=== PATIENT | male | born 2000 | race Caucasian/White ===

== ENCOUNTER 2023-11-04 08:49 | Emergency (ER) | payer OTHER, SELFPAY ==
--- NOTE | ~2023-11-04 | CT_ITS ---
EXAMINATION: CT ABDOMEN AND PELVIS WITH CONTRAST CLINICAL INFORMATION: Right lower quadrant COMPARISON: None available. TECHNIQUE: Multidetector volumetric images were obtained from the superior aspect of the liver through the pubic symphysis following administration 85 mL of Omnipaque 350 intravenous contrast. Sagittal and coronal reformatted images were obtained on the technologist's workstation. Oral contrast: No This CT examination was performed using dose optimization techniques as appropriate, variously including the following: *Automated exposure control *Adjustment of mA and/or kV according to patient size (this includes techniques or standardized protocols for targeted exams where dose is matched to indication/reason for exam; i.e. extremities or head) *Use of iterative reconstruction technique DLP: 492 mGy-cm FINDINGS: LUNG BASES: The visualized lung bases are unremarkable. LIVER, GALLBLADDER, AND BILIARY TREE: The liver is enlarged measuring 18.5 cm greatest dimension. A tiny benign hepatic cyst is present in the right lobe of the liver just beneath the hemidiaphragm (3:12) without concerning focal hepatic lesion or biliary ductal dilatation is present. The gallbladder is unremarkable with no evidence of radiopaque gallstones, gallbladder wall thickening, or obvious pericholecystic inflammatory changes. PANCREAS: Unremarkable. SPLEEN: Unremarkable. ADRENAL GLANDS: Unremarkable. KIDNEYS AND URETERS: The kidneys are normal in size, shape, and attenuation. No hydronephrosis, hydroureter, or calculi seen. No perinephric stranding. BLADDER: Empty and poorly evaluated GASTROINTESTINAL TRACT: The small and large bowel are unremarkable. The appendix is unremarkable. ABDOMINAL WALL: No significant hernia is appreciated. LYMPH NODES: No retroperitoneal lymphadenopathy. VASCULAR: Unremarkable. PELVIC VISCERA: The prostate and seminal vesicles are unremarkable OSSEOUS STRUCTURES: Unremarkable. CT/CT abdomen pelvis w IV con IMPRESSION: 1. A cause for the patient's right lower quadrant pain has not been found. The appendix is normal. 2. Incidental note made of mild hepatomegaly and a tiny benign hepatic cyst. Fleischner guidelines were followed.
[2023-11-04 08:53] VITALS: BP 134/85; BP 138/88; PULSE 50; PULSE 56; RESP 16; TEMP 36.4; O2SAT 96; O2SAT 99; BMI 27.5
--- NOTE | 2023-11-04 08:55 | ED_ITS ---
HPI - General Adult General Chief complaint: Nausea/Vomiting/Diarrhea Stated complaint: RLQ PAIN,DIZZY,WEAK X4 DAYS PER EMS Source: patient Mode of arrival: ambulatory Limitations: no limitations History of Present Illness ED Provider: Paul YOUNG HPI narrative: This is a 23-year-old male who denies past medical history presenting from [employer] he reports he has been having abdominal pain since October 30. He reports it has in the middle and moves down to his right lower abdomen. He reports initially pain intermittent now constant in nature and very uncomfortable. This pain is associated with nausea as well as diarrhea. Patient denies sick contacts. Denies new foods. Denies fevers,chills, cp, sob, headache, cough, vision changes, dizziness, weakness Related Data Previous Rx's ?Medication ?Instructions ?Recorded ondansetron 4 mg disintegrating 4 mg PO Q6H PRN nausea and 11/04/23 tablet vomiting #14 tabs Allergies Allergy/AdvReac Type Severity Reaction Status Date / Time No Known Allergies Allergy Verified 11/04/23 08:57 Review of Systems 2 Review of Systems: Yes all other systems are reviewed and are negative [facility] Past Medical History Attestation statement: The following information was validated with the patient. Source: old records reviewed and nursing notes reviewed Social History Social History Advance Directives: No Advance Directives Information Provided: Yes Do you have a plan to hurt others: No Plan Physical Exam ED Vital Signs: Vital Signs - 24 hr 11/04/23 08:53 11/04/23 09:02 11/04/23 12:50 Temperature 97.6 F 97.6 F 98.1 F Pulse Rate 56 56 52 Respiratory Rate 16 16 14 Blood Pressure 134/85 134/85 120/75 Pulse Oximetry 96 96 99 Oxygen Delivery Method Room Air Room Air Room Air BMI result Body Mass Index 27.5 vss Appearance: Alert.? Oriented X3.? No acute distress.? Head: Normocephalic, atraumatic, no step-offs or deformities Eyes: Pupils equal, round and reactive to light.? CVS: Normal heart rate and rhythm.? Pulses normal.? Respiratory: No respiratory distress.? Breath sounds normal.? Abdomen: Soft and diffusely tender w/ rebound in the RLQ.? Skin: Skin warm and dry.? Normal skin color.? Normal skin turgor.? Extremities: No lower extremity edema.? No calf ttp. 5/5 strength to bilateral upper and lower extremities Neuro: Oriented X 3.? No motor deficit.? No sensory deficit. CN 2-12 intact Course Reevaluation(s) Reevaluation #1: CBC with leukocytosis 11.3, chemistry with no acute electrolyte abnormalities requiring intervention. T bili is noted to be elevated 1.5 unclear of patient's baseline. UA without infection. Imaging of abdomen pending. Time: 11:47 Reevaluation #2: CT abdomen and pelvis unable to identify a cause for patient's right lower quadrant pain. The appendix is normal. Incidental note of mild hepatomegaly entirely benign hepatic cyst. On re-evaluation pain much improved. Patient finally sleeping comfortably and states he is feeling better. At this time patient to be discharged home. Educated patient on diagnosis and treatment plan, answered all question, patient verbalizes understanding. At this time patient will be discharged home, advised to return with new or worsening symptoms. Educated on worrisome signs and symptoms and when to return. At this time I feel comfortable discharge home. Time: 12:55 Medications Administered Discontinued Medications Generic Name Dose Route Start Last Admin Trade Name Missy PRN Reason Stop Dose Admin Iohexol 100 ml 11/04/23 10:54 11/04/23 10:55 Iohexol 350 Mg/Ml 100 Ml Infus..Btl IV 11/04/23 10:55 85 ml ONCE ONE Administration Ketorolac Tromethamine 30 mg 11/04/23 08:56 11/04/23 09:53 Ketorolac Tromethamine 30 Mg/Ml Vial IVPUSH 11/04/23 08:57 30 mg ONCE ONE Administration Lorazepam 1 mg 11/04/23 09:25 11/04/23 09:30 Lorazepam 1 Mg Tablet PO 11/04/23 09:26 1 mg ONCE ONE Administration Ondansetron HCl 4 mg 11/04/23 08:56 11/04/23 09:53 Ondansetron Hcl 4 Mg/2 Ml Vial IVPUSH 11/04/23 08:57 4 mg ONCE ONE Administration Medical Decision Making Medical Decision Making MDM Narrative: 23 year old male presents w/ abdominal pain since October 30 epigastric/central initally now RLQ PE - diffuse tenderness w/ rebound worse to RLQ History and physical exam concerning for acute appendicitis versus viral illness versus gastroenteritis versus kidney stone. Will rule out UTI. Unlikely metabolic derangements. I do not suspect dissection, ACS. Plan- labs, imaging, urine Differential Diagnosis Differential Diagnoses: The differential diagnosis associated with the presentation includes History and physical exam concerning for acute appendicitis versus viral illness versus gastroenteritis versus kidney stone. Will rule out UTI. Unlikely metabolic derangements. I do not suspect dissection, ACS. Admission/Observation Consideration of admission/observation: Escalation of care including admission/observation considered possible Lab Data MDM Lab Attestation statement: I reviewed the patient's lab results. 11/04/23 09:51 11/04/23 09:51 Labs: Lab Results 11/04/23 11/04/23 Range/Units 09:22 09:51 WBC 11.3 H (4.8-10.8) X10*3/uL RBC 6.01 H (4.60-5.80) X10*6/uL Hgb 17.7 (14.0-18.0) g/dl Hct 50.6 (42.0-52.0) % MCV 84.2 (80.0-98.0) fL MCH 29.5 (27.0-33.0) pg MCHC 35.0 (31.0-36.0) g/dl RDW 12.7 (11.0-16.0) % Plt Count 377 (160-400) X10*3/uL MPV 9.8 (9.4-12.4) fL Immature Gran % (Auto) 0.3 (0.0-0.4) % Neut % (Auto) 74.9 H (45-73) % Lymph % (Auto) 17.6 L (20-40) % [place] % (Auto) 4.3 (2-11) % Eos % (Auto) 2.4 (0-4) % Baso % (Auto) 0.5 (0-2) % Lymph # (Auto) 2.0 (1.2-4.9) X10*3/uL [place] # (Auto) 0.5 (0.1-1.2) X10*3/uL Eos # (Auto) 0.3 (0.0-0.4) X10*3/uL Baso # (Auto) 0.1 (0.0-0.2) X10*3/uL Abs Immat Gran (auto) 0.03 (0.00-0.03) X10*3/uL Absolute Neuts (auto) 8.4 H (2.0-8.3) x10*3/uL Absolute Nucleated RBC 0.000 (0.0-0.012) X10*3/uL Nucleated RBC % (auto) 0.0 (0.0-0.2) /100WBC ESR 3 (0-15) MM/HR Hold Purple Top SEE NOTE Sodium 142 (135-145) mmol/L Potassium 4.1 (3.3-5.1) mmol/L Chloride 104 (96-108) mmol/L Carbon Dioxide 26 (22-29) mmol/L Anion Gap 16 (12-20) BUN 10 (9-16) mg/dL Creatinine 1.11 (0.5-1.4) mg/dL Estim Creat Clear Calc 99.5 Estimated GFR > 60 Random Glucose 127 H (60-115) mg/dL Calcium 11.5 H (8.4-10.2) mg/dL Magnesium 2.0 (1.6-2.6) mg/dL Total Bilirubin 1.5 H (0.0-1.0) mg/dL AST 24 (5-37) U/L ALT 18 (0-40) U/L Alkaline Phosphatase 65 (39-117) U/L C-Reactive Protein 0.16 (< or = 0.50) mg/dL Total Protein 9.6 H (6.5-8.0) g/dL Albumin 5.9 H (3.5-5.0) g/dL Lipase 17 (8-78) U/L Urine Color Yellow Urine Appearance Clear Urine pH 7.5 (5.0-9.0) Ur Specific [place] 1.025 (1.005-1.025) Urine Protein Trace (Neg-Trace) mg/dL Urine Glucose (UA) Negative (Negative) mg/dL Urine Ketones Trace (Negative) mg/dL Urine Blood Negative (Negative) Urine Nitrite Negative (Negative) Ur Leukocyte Esterase Negative (Negative) Independent Interpretation I performed an independent interpretation of an: Plain X-Ray and CT Scan (CT/CT abdomen pelvis w IV con IMPRESSION: 1. A cause for the patient's right lower quadrant pain has not been found. The appendix is normal. 2. Incidental note made of mild hepatomegaly and a tiny benign hepatic cyst. Fleischner guidelines were followed.) Radiology Impression Discussion of test interpretation with radiology: I have reviewed the radiologist's reading. Critical Care Time Critical Care Time Critical Care Time: Yes Total Critical Care Time: 35 Attestation: I attest to this time spent taking care of the patient, obtaining history, physical, reviewing labs, imaging, speaking to my attending, specialist or hospitalist. Discharge Plan Discharge Clinical Impression: Right sided abdominal pain, Nausea, Diarrhea Patient Disposition: Home, Self-Care Instructions: Acute Nausea and Vomiting (ED), Acute Diarrhea (ED), Abdominal Pain (ED) Additional Instructions: Take your medications as prescribed. If you were prescribed antibiotics today, it is important that you take your medication to their entirety, do not skip any doses, do not finish them early. Follow-up with your primary care provider this week. Return to the emergency department with new or worsening symptoms. Such as fevers, chills, chest pain, shortness of breath, nausea, vomiting, dizziness, headache, vision changes, lethargy In case of emergency call 911 This is likely a virus CT/CT abdomen pelvis w IV con IMPRESSION: 1. A cause for the patient's right lower quadrant pain has not been found. The appendix is normal. 2. Incidental note made of mild hepatomegaly and a tiny benign hepatic cyst. Fleischner guidelines were followed. Prescriptions: New ondansetron 4 mg tablet,disintegrating 4 mg PO Q6H PRN (Reason: nausea and vomiting) Qty: 14 0RF Referrals: Physician,Unknown J [Primary Care Provider] - 2 days Stand Alone Forms: Work/School Release Print Language: Cypriot
[2023-11-04 09:02] VITALS: BP 134/85; PULSE 56; RESP 16; TEMP 36.4; O2SAT 96
[2023-11-04 09:29] LABS: Appearance Urine Clear; Color Urine Yellow; Glucose Urine UA Negative (Negative); Leukocyte Esterase Urine Negative (Negative); Nitrite Urine Negative (Negative); PH 7.5 (5.0-9.0); Specific Gravity - Urine 1.025 (1.005-1.025); Urine Blood Negative (Negative); Urine Ketones Trace mg/dL (Negative); Urine Protein Trace mg/dL (Neg-Trace)
[2023-11-04] MEDS: LORazepam 1 MG TABLET PO (09:30)
[2023-11-04] MEDS: Ketorolac Tromethamine 30 MG/ML VIAL IVPUSH (09:53)
[2023-11-04] MEDS: ondansetron HCL 4 MG/2 ML VIAL IVPUSH (09:53)
[2023-11-04 10:00] LABS: MANUAL DIFF FLAG NO
[2023-11-04 10:05] LABS: Basophils Absolute Auto 0.1 X10*3/uL (0.0-0.2); Basophils Percent Auto 0.5 % (0-2); Eosinophils Absolute Auto 0.3 X10*3/uL (0.0-0.4); Eosinophils Percent Auto 2.4 % (0-4); Hematocrit 50.6 % (42.0-52.0); Hemoglobin 17.7 g/dl (14.0-18.0); Imm Gran Abs Auto 0.03 X10*3/uL (0.00-0.03); Imm Gran Pct Auto 0.3 % (0.0-0.4); Lymphocytes Percent Auto 17.6 % (20-40); Mean Corpuscular Hemoglobin 29.5 pg (27.0-33.0); Mean Corpuscular Volume 84.2 fL (80.0-98.0); Mean Platelet Volume 9.8 fL (9.4-12.4); Monocytes Absolute Auto 0.5 X10*3/uL (0.1-1.2); Monocytes Percent Auto 4.3 % (2-11); Neutrophils Absolute Auto 8.4 x10*3/uL (2.0-8.3); Neutrophils Percent Auto 74.9 % (45-73); Platelet Count 377 X10*3/uL (160-400); Red Blood Count 6.01 X10*6/uL (4.60-5.80); Red Cell Distribution Width 12.7 % (11.0-16.0); White Blood Count 11.3 X10*3/uL (4.8-10.8)
[2023-11-04 10:23] LABS: Alanine Aminotransferase 18 U/L (0-40); Albumin Level 5.9 g/dL (3.5-5.0); Alkaline Phosphatase 65 U/L (39-117); Anion Gap 16 (12-20); Aspartate Amino Transferase 24 U/L (5-37); Bilirubin Total 1.5 mg/dL (0.0-1.0); Blood Urea Nitrogen 10 mg/dL (9-16); C Reactive Protein 0.16 mg/dL (< or = 0.50); Calcium 11.5 mg/dL (8.4-10.2); Carbon Dioxide 26 mmol/L (22-29); Chloride 104 mmol/L (96-108); Creatinine Clr Calc Pharmacy 99.5; Estimated Glomerular Filt Rate > 60; Glucose Random 127 mg/dL (60-115); Lipase 17 U/L (8-78); Potassium 4.1 mmol/L (3.3-5.1); Sodium 142 mmol/L (135-145); Total Protein 9.6 g/dL (6.5-8.0)
[2023-11-04] MEDS: iohexoL 350 MG/ML 100 ML INFUS..BTL IV (10:55)
[2023-11-04 11:03] LABS: Erythrocyte Sedimentation Rate 3 MM/HR (0-15)
[2023-11-04 12:50] VITALS: BP 120/75; PULSE 52; RESP 14; TEMP 36.7; O2SAT 99
[2023-11-04 13:08] VITALS: BP 120/75; PULSE 52; RESP 14; TEMP 36.7; O2SAT 99
== END 2023-11-04 13:09 | disposition home or self-care (01) ==
PROVIDERS: Physician Assistant; Emergency Provider Emergency Medicine
DX: R10.31 Right lower quadrant pain (principal); R42 Dizziness and giddiness; R53.1 Weakness; R11.0 Nausea; R19.7 Diarrhea, unspecified; Z79.899 Other long term (current) drug therapy
CPT/HCPCS: 36415; 74177; 80053; 81003; 83690; 83735; 85025; 85652; 86140; 96374; 96375; 99284; J1885; J2405; Q9967

== ENCOUNTER 2025-02-04 11:57 | Emergency (ER) | payer OTHER, SELFPAY ==
--- NOTE | ~2025-02-04 | XR_ITS ---
EXAMINATION: XR CHEST CLINICAL INFORMATION: HTN COMPARISON: None available. TECHNIQUE: 2 views of the chest were obtained. FINDINGS: No significant abnormality is noted involving the heart, lungs, mediastinum, bony thorax or soft tissues. XR/XR chest 2V IMPRESSION: No acute disease Electronically signed by: Leonardo Muñiz MD 02/04/2025 01:12 PM EDT RP
--- NOTE | ~2025-02-04 | CT_ITS ---
EXAMINATION: CT HEAD WITHOUT IV CONTRAST HISTORY: severe headache different from typical migraine. TECHNIQUE: Unenhanced helical CT of the head was performed per standard departmental protocol. Coronal and sagittal reformats of the head were also evaluated. One or more of the following techniques was used for dose reduction: Automated exposure control, adjustment of the mA and/or kV according to patient size, use of iterative reconstruction technique. DLP: 633 mGy-cm COMPARISON: There are no prior studies available for comparison. FINDINGS: BRAIN: The brain parenchyma is unremarkable. There is normal bazzi/white differentiation. The ventricular system is normal in size and configuration. There is no mass effect or midline shift. No intra- or extra-axial fluid collections are identified. SINUSES: The visualized paranasal sinuses are clear. The mastoid air cells and middle ear cavities are well pneumatized. ORBITS: The visualized orbits are unremarkable. BONES/SOFT TISSUES: The extracranial soft tissues are unremarkable. The calvarium is intact. No suspicious lytic or sclerotic lesions. CT/CT head/brain wo IV con IMPRESSION: Unremarkable unenhanced head CT. Electronically signed by: Sen Dc MD 02/04/2025 12:27 PM EDT
--- NOTE | 2025-02-04 12:00 | ED.GENADULT ---
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 Related Data Previous Rx's ?Medication ?Instructions ?Recorded ondansetron 4 mg disintegrating 4 mg PO Q6H PRN nausea and 11/04/23 tablet vomiting #14 tabs Allergies Allergy/AdvReac Type Severity Reaction Status Date / Time No Known Allergies Allergy Verified 02/04/25 12:05 Review of Systems Constitutional: Constitutional: Reports as per [facility] Social History Social History Alcohol intake: current Alcohol intake frequency: holidays/special occasions only Smoked in Last 30 Days: No Use of substances other than those prescribed or required for medical reasons: Yes Substance Use Type: Marijuana Substance Use Frequency: Occasionally Advance Directives: No Advance Directives Information Provided: Yes Do you have a plan to hurt others: No Plan Physical Exam ED Vital Signs: Vital Signs - 24 hr 02/04/25 12:01 02/04/25 15:52 Temperature 98.0 F 97.8 F Pulse Rate 94 70 Respiratory Rate 20 18 Blood Pressure 188/107 H 163/115 H Pulse Oximetry 99 100 Oxygen Delivery Method Room Air Room Air BMI result Body Mass Index 29.4 Const Other: General: ?Appears of stated age ? Neck: Supple, no LAD ? ?CV: RRR, no obvious murmurs appreciated ? ?Resp: ?No wheezing rales rhonchi no stridor moving air well ? Abd: ?Bowel sounds are present, no tenderness no rebound no rigidity ? ?MSK: FROM, strength 5/5 all extremities ? Skin: Warm, dry, intact, ? ?Neuro: ?Alert and oriented x3, moving upper and lower extremities symmetrically, no obvious facial asymmetry noted, cranial nerves 2-12 intact Course Course Course Narrative: This is a rapid medical exam performed by Konrad Escamilla NP: Additional HPI, ROS, PE not included below will be deferred to primary provider. Patient is a 24y/o M with history of migraines presenting to the ED from [facility] school, went there for a migraine, BP there was 150/110 so they referred him here. Feels confused, states he is having difficulty getting his words straight all day. States he feels a little better after taking some OTC meds. Has been having twitching to eye for the past few weeks. States feels different from typical migraines. Plan: Labs, CT head Medical Decision Making Medical Decision Making [facility] Narrative: 4:51 PM 02/04/2025 (Dr. Dustin Muñiz): We spent quite a bit of time discussing blood pressure with the patient, see my discharge instructions regarding that, overall his physical examination is reassuring, his CT did not reveal any evidence of masses or bleeding,, he did have EKG that did not show any evidence for underlying ACS, he has no hypoxic tachycardic to suspect PE, he is nonfebrile I do not suspect encephalitis meningitis, and we spoke about mental health and he has no SI or HI Biggest thing is going to be dietary changes, exercise, normalizing sleep cycle, we are going to obtain a PCP in monitoring his blood pressure Differential Diagnosis Differential Diagnoses: The differential diagnosis associated with the presentation includes (Asymptomatic hypotension, subarachnoid hemorrhage, brain mass, migraines, tension headache) Admission/Observation Consideration of admission/observation: Escalation of care including admission/observation considered Lab Data [facility] Lab Attestation statement: I reviewed the patient's lab results. 02/04/25 12:11 02/04/25 12:11 Labs: Lab Results 02/04/25 02/04/25 Range/Units 12:11 12:57 WBC 7.8 (4.8-10.8) X10*3/uL RBC 5.04 (4.60-5.80) X10*6/uL Hgb 15.2 (14.0-18.0) g/dl Hct 43.5 (42.0-52.0) % MCV 86.3 (80.0-98.0) fL MCH 30.2 (27.0-33.0) pg MCHC 34.9 (31.0-36.0) g/dl RDW 12.9 (11.0-16.0) % Plt Count 352 (160-400) X10*3/uL MPV 8.8 L (9.4-12.4) fL Immature Gran % (Auto) 0.3 (0.0-0.4) % Neut % (Auto) 63.1 (45-73) % Lymph % (Auto) 28.3 (20-40) % [place] % (Auto) 6.9 (2-11) % Eos % (Auto) 0.8 (0-4) % Baso % (Auto) 0.6 (0-2) % Lymph # (Auto) 2.2 (1.2-4.9) X10*3/uL [place] # (Auto) 0.5 (0.1-1.2) X10*3/uL Eos # (Auto) 0.1 (0.0-0.4) X10*3/uL Baso # (Auto) 0.1 (0.0-0.2) X10*3/uL Abs Immat Gran (auto) 0.02 (0.00-0.03) X10*3/uL Absolute Neuts (auto) 4.9 (2.0-8.3) x10*3/uL Absolute Nucleated RBC 0.000 (0.0-0.012) X10*3/uL Nucleated RBC % (auto) 0.0 (0.0-0.2) /100WBC Sodium 140 (135-145) mmol/L Potassium 3.8 (3.3-5.1) mmol/L Chloride 105 (96-108) mmol/L Carbon Dioxide 27 (22-29) mmol/L Anion Gap 12 (12-20) BUN 11 (9-16) mg/dL Creatinine 0.94 (0.5-1.4) mg/dL Estim Creat Clear Calc 120.0 Estimated GFR > 60 Random Glucose 114 (60-115) mg/dL Calcium 9.8 D (8.4-10.2) mg/dL Total Bilirubin 0.8 (0.0-1.0) mg/dL AST 31 (5-37) U/L ALT 27 (0-40) U/L Alkaline Phosphatase 61 (39-117) U/L Total Protein 8.2 H (6.5-8.0) g/dL Albumin 5.3 H (3.5-5.0) g/dL COVID-19 (ALEX) Negative (Negative) COVID-19 Clin Com See Note Influenza Type A (SU) Negative (Negative) Influenza Type B (SU) Negative (Negative) Influenza A & B Note See Note Independent Interpretation I performed an independent interpretation of an: EKG and Plain X-Ray (My independent chest xray interpretation: Lungs: Lungs are clear bilaterally without evidence of focal consolidation, pleural effusion, or pneumothorax. Cardiac silhouette is unremarkable, no obvious mediastinal widening, no obvious bony abnormalities such as fractures. Impression: Normal chest X-r) Radiology Impression Discussion of test interpretation with radiology: I have reviewed the radiologist's reading. (Negative CT brain) Discharge Plan Discharge Clinical Impression: Headache, Hypertension Patient Disposition: Home, Self-Care Additional Instructions: Evaluated with a headache, elevated blood pressure, is you are having a headache or anxiety I would definitely suspect that your blood pressure would be elevated, this is something that I would not specifically worry about right now as we have discussed, you have had reassuring workup, CT brain, EKG, chest x-ray and blood work, instead I would recommend normalizing her sleep cycle, minimizing screen time 1-2 hours before bedtime, staying well hydrated throughout the day, cutting down on sugary or caffeinated drinks, getting under 2 g of salt diet per day, 4 or 5 times a week getting 10,000 steps in and getting your heart rate up solids spent more time researching into a healthy lifestyle and what it can mean for your As discussed monitor your blood pressure least 3 times a week twice daily until you can see a PCP and monitoring your progress Worsening issues or concerns never hesitate to come back to the ER for re-evaluation Prescriptions: No Action ondansetron 4 mg tablet,disintegrating 4 mg PO Q6H PRN (Reason: nausea and vomiting) Qty: 14 0RF Stand Alone Forms: Work/School Release Print Language: Stateless
[2025-02-04 12:01] VITALS: BP 188/107; PULSE 94; RESP 20; TEMP 36.7; O2SAT 99; BMI 29.4
[2025-02-04 12:14] LABS: MANUAL DIFF FLAG NO
[2025-02-04 12:18] LABS: Hematocrit 43.5 % (42.0-52.0); Hemoglobin 15.2 g/dl (14.0-18.0); Imm Gran Abs Auto 0.02 X10*3/uL (0.00-0.03); Imm Gran Pct Auto 0.3 % (0.0-0.4); Lymphocytes Absolute Auto 2.2 X10*3/uL (1.2-4.9); Mean Corpuscular HGB Conc 34.9 g/dl (31.0-36.0); Mean Corpuscular Hemoglobin 30.2 pg (27.0-33.0); Mean Corpuscular Volume 86.3 fL (80.0-98.0); NRBC Abs Auto 0.000 X10*3/uL (0.0-0.012); NRBC Pct Auto 0.0 /100WBC (0.0-0.2); Platelet Count 352 X10*3/uL (160-400); Red Blood Count 5.04 X10*6/uL (4.60-5.80); White Blood Count 7.8 X10*3/uL (4.8-10.8)
[2025-02-04 12:32] LABS: Alanine Aminotransferase 27 U/L (0-40); Albumin Level 5.3 g/dL (3.5-5.0); Alkaline Phosphatase 61 U/L (39-117); Anion Gap 12 (12-20); Aspartate Amino Transferase 31 U/L (5-37); Blood Urea Nitrogen 11 mg/dL (9-16); Calcium 9.8 mg/dL (8.4-10.2); Carbon Dioxide 27 mmol/L (22-29); Chloride 105 mmol/L (96-108); Creatinine Clr Calc Pharmacy 120.0; Estimated Glomerular Filt Rate > 60; Potassium 3.8 mmol/L (3.3-5.1); Sodium 140 mmol/L (135-145); Total Protein 8.2 g/dL (6.5-8.0)
--- NOTE | 2025-02-04 12:35 | ECG_ITS ---
Test Reason : HTN Blood Pressure : */* mmHG Vent. Rate : 86 BPM Atrial Rate : 86 BPM P-R Int : 130 ms QRS Dur : 96 ms QT Int : 364 ms P-R-T Axes : 44 -1 23 degrees QTcB Int : 435 ms Normal sinus rhythm with sinus arrhythmia Normal ECG No previous ECGs available Referred By: Esther Lara Electronically Signed By: LAKESHIA STYLES MD
[2025-02-04 13:27] LABS: COVID-19 Test Negative (Negative); IDNOW Serial# 55D5AD1C; IDNOW Serial# 58CA691E; Influenza B2 Negative (Negative)
[2025-02-04 15:52] VITALS: BP 163/115; PULSE 70; RESP 18; TEMP 36.6; O2SAT 100
--- NOTE | 2025-02-04 15:55 | PC.NURSE ---
patient a&ox3, pt continues to have hypertension, he states his headache has resolved and feels he had a panic attack. he takes BP medication but not for B
[2025-02-04 17:11] VITALS: BP 153/106; PULSE 70; RESP 18; TEMP 36.6; O2SAT 100
== END 2025-02-04 17:11 | disposition home or self-care (01) ==
PROVIDERS: Physician Assistant Medical; Registered Nurse Emergency; Emergency Provider Emergency Medicine
DX: R51.9 Headache, unspecified (principal); I10 Essential (primary) hypertension
CPT/HCPCS: 36415; 70450; 71046; 80053; 85025; 87502; 87635; 93005; 99284

== ENCOUNTER → 2025-02-04 12:04 | Outpatient (BNV) | payer OTHER, SELFPAY | PROVIDERS: Visit Provider Radiology Diagnostic Radiology | DX: R51.9 Headache, unspecified (principal); I10 Essential (primary) hypertension | CPT/HCPCS: 70450; 71046 ==

== ENCOUNTER → 2025-02-04 12:35 | Outpatient (BNV) | payer OTHER, SELFPAY | PROVIDERS: Emergency Provider Emergency Medicine; Visit Provider Internal Medicine Cardiovascular Disease | DX: I10 Essential (primary) hypertension (principal) | CPT/HCPCS: 93010 ==

== ENCOUNTER 2025-02-11 10:04 | Emergency (ER) | payer OTHER, SELFPAY ==
[2025-02-11 10:28] VITALS: BP 186/110; PULSE 137; RESP 21; TEMP 36.8; O2SAT 97; BMI 27.5
--- NOTE | 2025-02-11 10:52 | ED_ITS ---
HPI - General Adult General Chief complaint: General Medical Stated complaint: Passed out earlier, hit head Time Seen by Provider: 02/11/25 10:32 Source: patient Mode of arrival: ambulatory Limitations: no limitations History of Present Illness ED Provider: Rosalinda Fox PA-C HPI narrative: Patient was brought in via job court for a wellness check. He reports not having good raport with staff. He is under a lot of stress with his new job. Yesterday he fell asleep in a chair that was approx 1-1.5' from the ground. he was wrapped into a blank. He fell off of it while sleeping. he continued to sleep on the ground. When staff did a room check, they saw him sleeping on the ground. Calling his name did not wake him up but when they rustled him awake, he was able to be aroused. Patient does 'stuggle' with mental health depression and severe anxiety per him, but he does not feel like it it had anything to do with his falling asleep in chair the other day. He denies Si, HI and AVH. He is established with psychiatrist and therapist. He has plans to follow up with them outpatient. He has no sxs. Denies any injuries. He only expresses fustration with being 'made' to come here, not feeling like he was respected to make the decision. Related Data Previous Rx's ?Medication ?Instructions ?Recorded ondansetron 4 mg disintegrating 4 mg PO Q6H PRN nausea and 11/04/23 tablet vomiting #14 tabs Allergies Allergy/AdvReac Type Severity Reaction Status Date / Time No Known Allergies Allergy Verified 02/11/25 10:30 Review of Systems Review of Systems: Yes all other systems are reviewed and are negative PMFSH Past Medical History Attestation statement: The following information was validated with the patient. Source: old records reviewed and nursing notes reviewed Social History Social History Alcohol intake: current Alcohol intake frequency: holidays/special occasions only Smoked in Last 30 Days: No Use of substances other than those prescribed or required for medical reasons: No Substance Use Type: Marijuana Advance Directives: No Advance Directives Information Provided: No Do you have a plan to hurt others: No Plan Physical Exam ED Exam Exam: Patient Orientation: Person, Place, Time and Situation, okay hygiene and grooming.? Fair eye contact, attentive, no tics or tremors. Level of Consciousness: Awake, Appropriate and Alert Patient Behavior: Appropriate, Cooperative and Anxious Mood Description: Anxious Affect Description: Broad Patient Cognition Impaired: No Ability to Follow Directions: Excellent Speech Pattern: Clear, Appropriate and Spontaneous Speech, nonpressured, spontaneous with regular rate and rhythm, normal volume and prosody.? No dysarthria. Memory Description: Intact, Immediate Intact and Short Term Intact Hallucinations: None Delusions: Not Present Thought Process: Intact Thought Content: positive for Intact, positive for Logical, denies Suicidal Ideation and denies Homicidal Ideation. Depressive Symptoms:? Not present. Judgement and Insight:? Limited but adequate. Vital Signs: Vital Signs - 24 hr 02/11/25 10:28 Temperature 98.2 F Pulse Rate 137 H Respiratory Rate 21 H Blood Pressure 186/110 H Pulse Oximetry 97 Oxygen Delivery Method Room Air BMI result Body Mass Index 27.5 Const General: cooperative, healthy appearing, comfortable, no acute distress and well developed [facility] Head: Yes normal to inspection, Yes No palpable skull fracture present, Yes normocephalic and Yes atraumatic Ears: hearing grossly normal bilaterally, external ears normal and TM's normal bilaterally General nose exam: Normal external nose present Face and sinus: Yes normal facial exam Mouth: Normal oral and palatal mucosa present, lip normal, tongue normal and oropharynx normal Teeth and gingiva: dentition normal Eyes General: appearance normal, both eyes and all related structures Alignment and Position: alignment normal Periorbital: periorbital findings normal Eyelids: Yes eyelids normal Conjunctivae: conjunctivae normal Sclerae: sclerae normal Corneas: corneas normal EOM: EOMs intact bilaterally Neck Neck: Yes normal visual inspection, Yes full ROM and Yes no lymphadenopathy Carotids: normal carotid upstroke Chest Chest palpation & inspection: normal inspection of the chest Resp Effort & Inspection: normal respiratory effort and able to speak in complete sentences Auscultation: clear to auscultation bilaterally Cardio Rate: regular rate Rhythm: regular rhythm Peripheral pulses: Peripheral pulses 2+ throughout GI Inspection: Yes normal to inspection Rectal Exam - Male: Yes deferred General: Yes no CVA tenderness Back/Spine/Pelvis Back: no CVA tenderness Cervical Spine: normal cervical lordosis and cervical ROM normal Thoracic/Lumbar Spine: thoracic and lumbar spine normal to inspection and thoraco-lumbar ROM normal Pelvis: no pain with anterior-posterior compression Skin General skin exam: no rashes or lesions noted and turgor normal Wounds: no wounds Neuro General: gait normal, CN's II-XI intact bilaterally and deep tendon reflexes 2+ bilaterally Medical Decision Making Medical Decision Making [facility] Narrative: Well appearing 24 y/o M here for wellness check. He is highly anxious and pulse fluctuates from when calm and listening NS but with talking he becomes worked up anxiously and pulse matches this, but resolves with calming talking measures. He declines a crisis evaluation. As he has no SI, HI or AVH, and he denies any sxs or there are not reported or observed injuries. I did not feel any further work up was indicated in the emergency department. He does not appear to be at risk to harm himself or others. There is no documented or reported history of this either. PE unremarkable. Discussed his BP. No CP, SOB, dizziness, headadches or changes in urinary output. Likely secondary to stress of being in the ER. He wi ll recheck outpatient. Has eastabl[facility] care. He was given return precautions. He expresses future hope and goals for the future. Differential Diagnosis Differential Diagnoses: The differential diagnosis associated with the presentation includes anxiety, depression, histrionic personality, adjustment syndrome Admission/Observation Consideration of admission/observation: Escalation of care including admission/observation considered Tests considered The following testing was considered but not selected: Would have considered labs and imaging had history and physical been suggestive of patient needing work up. Chronic Conditions Patient?s care impacted by: Other anxiety and depression Social Determinants Patient?s care significantly limited by Social Determinants of Health including: Problems related to primary support group and Other Social Determinant of Health Discharge Plan Discharge Clinical Impression: Anxiety Patient Disposition: Home, Self-Care Instructions: Anxiety (ED) Additional Instructions: You were seen in the emergency department today for basic wellness check. You were denying any suicidal or homicidal ideations you are not hearing or seeing things that are not there. You feel stable on your current medications that are not seeking a crisis evaluation. Your denying any infectious symptoms and have no current symptoms for me to workup further in the emergency department. You are going through a lot of life adjustments right now and have a good care team in place. We have established that you have both a psychiatrist and a therapist that you feel comfortable utilizing. I hope life continues to work out well for you return for concerns Prescriptions: No Action ondansetron 4 mg tablet,disintegrating 4 mg PO Q6H PRN (Reason: nausea and vomiting) Qty: 14 0RF Referrals: N Crisis [Outside] Referral Note: as needed Clinical Impression: Anxiety Interventions: ED Discharge Assessment Last Done: 02/11/25 11:03 Discharge Date/Time: 02/11/25 11:03 Print Language: Malay
[2025-02-11 10:53] VITALS: BP 160/95; PULSE 113; RESP 16; O2SAT 95
[2025-02-11 11:03] VITALS: BP 160/95; PULSE 113; RESP 16; TEMP -17.7; TEMP 0; O2SAT 95
--- OUTSIDE RECORDS SUMMARY | 2025-02-11 13:05 | XMS_ITS | Clinical Summary ---
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 Name Role Phone Bimal Carrasquillo MD Primary Care Provider [phone] Bimal Carrasquillo MD Unavailable [phone] Bimal Carrasquillo MD Unavailable [phone] Social History Tobacco Use Types Packs/Day Years Used Date Smoking Tobacco: Never Assessed Sex and Gender Information Value Date Recorded Sex Assigned at Not on file Legal Sex Male 6:13 PM EDT Gender Identity Not on file Sexual Orientation Not on file Plan of Treatment Not on file Care Teams Hairspring Setter Relationship Specialty Start Date End Date Bimal Carrasquillo MD [address] [place] [address] PCP - General 09/13/05 Bimal Carrasquillo MD [address] [facility] [place] [address] PCP - Clinical PCP 12/11/10 Bimal Carrasquillo MD [address] [place] [address] PCP - Insurance PCP 09/13/05
== END 2025-02-11 11:03 | disposition home or self-care (01) ==
PROVIDERS: Emergency Provider Emergency Medicine
DX: F41.9 Anxiety disorder, unspecified (principal)
CPT/HCPCS: 99283; 99284